=== PATIENT | female | born 1965 | race Caucasian/White ===

== ENCOUNTER 2023-12-24 08:42 | Outpatient (CLI) | payer OTHER | END 2023-12-24 08:43 | disposition home or self-care (01) | LOC: BICRAD 08:42 | PROVIDERS: ATTEND Internal Medicine | DX: Z02.71 Encounter for disability determination (principal); M17.12 Unilateral primary osteoarthritis, left knee; M18.11 Unilateral primary osteoarthritis of first carpometacarpal joint, right hand ==